=== PATIENT | female | born 1945 | race African-American/Black ===

== ENCOUNTER 2024-07-06 14:03 | Emergency (ER) | payer OTHER, MEDICAID ==
[~2024-07-06] VITALS: Ht 165.1 cm; Wt 102.0 kg
[2024-07-06 14:04] VITALS: O2SAT 99
[2024-07-06 15:13] LABS: BASOPHILS % 0.4 % (0.0-2.0); DIFFERENTIAL COMMENT 0; EOSINOPHILS % 2.1 % (0.0-5.0); HEMOGLOBIN. 9.6 g/dL (12.0-16.0); LYMPHOCYTES % 17.2 % (20.0-50.0); MEAN CORPUSCULAR HEMOGLOBIN 26.1 pg (28.0-32.0); MEAN CORPUSCULAR VOLUME 78.9 fL (81.0-99.0); MEAN PLATELET VOLUME 7.7 fl (7.4-10.4); MONOCYTES % 7.2 % (2.0-8.0); NEUTROPHILS % 73.1 % (40.0-76.0); PLATELET 577 x1000/uL (130-400); RED BLOOD CELL COUNT 3.67 mill/uL (4.2-5.4); RED CELL DISTRIBUTION WIDTH 19.4 % (11.6-14.6)
[2024-07-06 15:20] LABS: CHLORIDE 103 mEq/L (98-107); POTASSIUM 4.4 mEq/L (3.5-5.1); SODIUM 140 mEq/L (136-145)
[2024-07-06 15:21] LABS: CARBON DIOXIDE 25 mEq/L (21-32)
[2024-07-06 15:22] LABS: CALCIUM 10.1 mg/dL (8.7-10.4)
[2024-07-06 15:26] LABS: CREATININE 1.7 mg/dL (0.6-1.0)
[2024-07-06 15:27] LABS: GLUCOSE 191 mg/dL (70-105); UREA NITROGEN BLOOD 22 mg/dL (9-23)
[2024-07-06 15:29] LABS: TROPONIN I HIGH SENSITIVITY 9 ng/L (3.0-34)
[2024-07-06 15:37] LABS: LACTIC ACID 2.8 mmol/L (0.4-2.0)
[2024-07-06] MEDS: SODIUM CHLORIDE 0.9% 1,000 ML IV ONE (15:47)
[2024-07-06] MEDS: CEFTRIAXONE 1GM/50ML 50 ML IV ONE (15:48)
[2024-07-06 18:05] LABS: TROPONIN I HIGH SENSITIVITY 10 ng/L (3.0-34)
[2024-07-06 20:47] LABS: CLARITY URINE CLEAR (CLEAR); COLOR URINE YELLOW (YELLOW)
[2024-07-06 20:48] LABS: GLUCOSE URINE NEGATIVE (NEGATIVE); KETONES URINE NEGATIVE (NEGATIVE); LEUKOCYTE ESTERASE URINE TRACE (NEGATIVE); NITRITE URINE NEGATIVE (NEGATIVE); OCCULT BLOOD URINE NEGATIVE (NEGATIVE); PROTEIN URINE NEGATIVE (NEGATIVE); UROBILINOGEN URINE 0.2 E.U./dL (0.2-1.0)
[2024-07-06 20:56] LABS: BACTERIA URINE 2+; RBC URINE 0-2 /hpf (0-2); SQUAMOUS EPITHELIAL CELL URINE FEW /lpf (RARE/1+); WBC URINE 0-2 /hpf (0-2)
[2024-07-06 21:59] VITALS: BP 147/55; PULSE 64; RESP 22; TEMP 36.7; O2SAT 99
== END 2024-07-06 22:00 | disposition home or self-care (01) ==
LOC: ER 14:03
DX: R06.02 Shortness of breath (principal); R50.9 Fever, unspecified; I10 Essential (primary) hypertension; E11.9 Type 2 diabetes mellitus without complications; Z88.0 Allergy status to penicillin; Z91.030 Bee allergy status
CPT/HCPCS: 99285; 96365; 71045; 80048; 81003; 83880; 83605; 85025; 84484; 36415; 93005; J0696